=== PATIENT | female | born 1980 | race Caucasian/White ===

== ENCOUNTER → 2020-11-09 17:20 | Outpatient (CLI) | payer OTHER, SELFPAY | PROVIDERS: PCP Nurse Practitioner Primary Care; Referring Provider Nurse Practitioner Primary Care; Visit Provider Nurse Practitioner Primary Care | DX: Z20.828 Contact with and (suspected) exposure to other viral communicable diseases (principal) | CPT/HCPCS: 87635; 87804; C9803; U0003 ==

== ENCOUNTER 2020-12-16 13:22 | Outpatient (RCR) | payer OTHER, SELFPAY ==
[2014-05-13 17:26] VITALS: BMI 31.9
== END 2020-12-16 23:59 ==
LOC: IMMUN 13:22
PROVIDERS: PCP Family Medicine; Visit Provider Family Medicine
DX: Z23 Encounter for immunization (principal)
CPT/HCPCS: 0011A; 0012A

== ENCOUNTER 2021-03-31 07:44 | Day surgery (SDC) | payer OTHER, SELFPAY ==
--- NOTE | 2021-03-15 16:51 | HP.PCM_ITS ---
History and Physical Date of Admission: 03/31/21 HPI: The patient is a 40 year old female presenting for pre-operative visit. She is scheduled for hysteroscopy with endometrial ablation, laparoscopic bilateral salpingectomy, for menorrhagia and sterilization request on 03/31/2021. Procedure discussed along with risks, benefits and com plications. Other alternatives discussed for management. Consent form signed? Yes. ? ? PAST MEDICAL HISTORY PAST MEDICAL HISTORY Diagnosis Date ? Eczema ? ? scalp ? Hypercholesterolemia ? ? Irritable bowel syndrome ? ? Migraine ? ? Other immediate hemorrhage, unspecified as to episode of care ? ? hemorrhage ? Rosacea ? ? ? PAST SURGICAL HISTORY PAST SURGICAL HISTORY Procedure Laterality Date ? DELIVERY ONLY ? 2005,2006,2009 ? , low cervical ? HYSTEROSCOPY, SURG; REMOVE FB ? 06/29/11 ? mirena removal ? INSERT INTRAUTERINE DEVICE ? 01/19/2010 ? mirena, removal 06/29/11 ? REMOVAL OF TONSILS,<12 Y/O ? ? ? Tonsillectomy ? REPAIR ING HERNIA,5+Y/O,REDUCIBL ? age 3 ? Hernia repair, inguinal ? ? ? CURRENT MEDICATIONS Current Outpatient Medications Medication Sig Dispense Refill ? L-Norgest and E Estradiol-E Estrad (ASHLYNA) 0.15 mg-30 mcg (84)/10 mcg (7) Take 1 tablet by mouth once daily. 91 tablet 3 ? SUMAtriptan (IMITREX) 50 mg tablet Take 1 tablet by mouth as needed. 9 tablet 3 ? clobetasol-calcipotriene 0.05-0.005 % soln Apply 1 application to affected area every Sunday,Sunday,Sunday. ? ? ? ivermectin (SOOLANTRA) 1 % Apply 1 application to affected area daily at bedtime. ? ? ? multivitamin tablet Take 1 tablet by mouth once daily. ? ? ? No current facility-administered medications for this visit. ? ? ALLERGIES: Patient has no known allergies. ? PERSONAL HISTORY: SOCIAL HISTORY Social History ? Tobacco Use ? Smoking status: Never Smoker ? Smokeless tobacco: Never Used Vaping Use ? Vaping Use: Never used Substance Use Topics ? Alcohol use: Yes ? ? Comment: rare,NOT WHEN ? Drug use: No ? FAMILY HISTORY: FAMILY HISTORY FAMILY HISTORY Problem Relation Age of Onset ? Asthma Mother ? ? Heart Father ? ? heart arrhythmia ? Psychiatry Father ? ? bipolar ? Lipids Father ? ? Diabetes Father ? ? other (migraine) Brother ? ? Hypertension Maternal Grandfather ? ? Heart Paternal Grandmother ? ? AR ? Stroke Paternal Grandmother ? ? embolic 2/2 surgery ? Heart Paternal Grandfather ? ? AR ? other (adhd) Son ? ? Alcohol/Drug Maternal Uncle ? ? ALCOHOLISM ? Asthma Sister ? ? other (migraine) Sister ? ? ? REVIEW OF SYMPTOMS: GENERAL: denies fevers or chills ENDOCRINOLOGY: has not been on steroids Cardiology : denies palpitations or chest pain Respiratory: denies SOB or cough Hematology: denies history of prolonged bleeding or easy bruising or VTE Allergy: Denies history of personal or family history of allergy to anesthesia ? PHYSICAL EXAMINATION: ? VITALS: Blood pressure 120/82, pulse 93, height 5' 8 (1.727 m), weight 185 lb (83.9 kg), last menstrual period 07/22/2019. ? GENERAL: The patient is well nourished, well hydrated in no acute distress. , The patient is oriented to time, place, and person. NECK: Supple. No lynphadenopathy, normal thyroid, no thyromegaly. LUNGS: Clear to auscultation bilaterally. no wheezes, rhonchi or rales HEART: Regular rate and rhythm, Normal heart sounds and No murmurs or gallops ? ? IMPRESSION: Menorrhagia, sterilization request. ? PLAN: The risks/benefits/alternatives and personal involved for the planned hysteroscopy with endometrial ablation and laparoscopic bilateral salpingectomy were reviewed with the patient. Her questions were answered to her satisfaction and she desires to proceed. Consent was signed. I reviewed with her postop instructions and expectations. ? ? I have reviewed and updated past medical and surgical history, medications and allergies
[2021-03-31] VITALS (7 sets, daily range): BP systolic 106–126; BP diastolic 52–74; PULSE 62–81; RESP 16–18; TEMP 36.2–36.5; O2SAT 98–100; BMI 28.2
[2021-03-31] MEDS: Lactated Ringers 1,000 ML 70 ML IV (08:20)
[2021-03-31 08:31] LABS: Internal QC Validated? YES +Cl - CLEAR BKGD; Pregnancy, Urine Negative Negative
[2021-03-31] MEDS: Celecoxib 200 MG Capsule 400 MG PO (08:38)
[2021-03-31] MEDS: Acetaminophen 500 MG Tablet 1000 MG PO (08:39)
--- NOTE | 2021-03-31 09:30 | FALS_PTH ---
PATIENT: KEVIN GARCIA LOC: [facility] [place] U#:[id number] AGE/SX: 40/F ROOM: RE03/31/[address]: Dr. Kevin Rapp MD : 1980 BED: DIS: 03/31/2021 SPEC #: [id number] RECD: 03/31/21 11:50 STATUS: JULIAN REMavis #: [id number] MARGARITA: 03/31/21 09:[address]: Kevin Rapp DEPT: SURGICAL PATHOLOGY RECD BY: Jeane Kelley ENTERED: 03/31/21 12:50 SP TYPE: FALL TUBES OTHR DR: Dr. Alex Guerrero MD Tissues: Fallopian tube Procedures: Surgery Specimen Level II HEADER OPERATION: Bilateral laparoscopic salpingectomy, hysteroscopy PRE-OP DIAGNOSIS: Menorrhagia, sterilization request TISSUE SUBMITTED: Bilateral fallopian tubes MICROSCOPIC DIAGNOSIS Right and left fallopian tubes, bilateral salpingectomies: Complete cross-sections of fallopian tubes. Bilateral benign paratubal cysts. AM:juan m 04/01/2021 MICROSCOPIC DESCRIPTION Slides are reviewed. GROSS DESCRIPTION Received in fixative is one container labeled with the patient's name and designated bilateral fallopian tubes. The specimen consists of two fallopian tubes with an average length of 5.5 cm and has an average diameter of 0.7 cm. Both fallopian tubes have normal fimbriated ends. No mass lesions are identified. [employer] sections are submitted in two cassettes as follows: 1 - one fallopian tube, 2??the other fallopian tube. Note, a distinct fimbrial end is not identified on one fallopian tube. / AM:juan m 03/31/21 TC:5 CPT: 46705 x2
[2021-03-31] MEDS: Bupivacaine 0.5% PF 10 ML VIAL (10:18)
--- NOTE | 2021-03-31 11:01 | PCM.OPRPT ---
Problems Associated Problem List Diagnoses (1) Sterilization: (2) Menorrhagia: Report of Operation Date of Procedure: 03/31/21 Pre-Operative Diagnosis: menorrhagia, sterilization request Post-Operative Diagnosis: same Surgery/Procedure Performed:: Hysteroscopy- diagnostic and laparoscopic bilateral salpingectomy Description of Surgical Findings:: Normal-appearing uterus, tubes and ovaries. Normal-appearing cervix vagina and endometrial cavity. Surgeon: Jes Rapp credit control manager: Jyoti Linares Type of Anesthesia: General Anesthesiologist: Andrea Brandon Special Medications: none Specimen's removed: bilateral fallopian tubes Drains: none Estimated Blood Loss (mL): 20 Fluids Replaced: 800 Description of Procedure: The patient was taken to the operating room where she was prepped and draped in the dorsolithotomy position. A weighted speculum was placed in the vagina and the anterior lip of the cervix was grasped with a tenaculum. The Lady uterine manipulator was placed and the remainder of the instruments were removed from the vagina. Attention was turned to the abdomen. All port sites were infiltrated with 0.5% Marcaine before skin incisions were made. A 5 mm [intraumbilical] incision was made. The anterior abdominal wall was tented up with 2 towel clamps while a 5 mm blade less trocar and sleeve were [directly inserted]. Intraperitoneal placement was confirmed with the laparoscope. The pneumoperitoneum was created and the underlying abdominal contents were intact. The patient was placed in Trendelenburg. Right and left lower quadrant ports were placed under direct visualization lateral to the inferior epigastric vessels. The bowel was swept away and the above findings were noted. The Enseal device was used to clamp seal and transect the antimesenteric portions of the right tube to the cornual insertion of the uterus. The tube was amputated from the uterus and the pedicles were all confirmed to be hemostatic. The same procedure was performed on the contralateral side. The specimens were brought out through a 5 mm port. The pedicles were again examined and found to be hemostatic. The lateral ports were removed under direct visualization and no active bleeding was noted. The pneumoperitoneum was released. The skin incisions were closed with Monocryl suture in a subcuticular fashion and skin glue. Attention was turned to the vaginal portion of the case. The cervix was dilated serially with Hegar dilators. The [5mm] hysteroscope was placed into the uterine cavity and the above findings were noted. Bilateral tubal ostia [were] identified. The uterus sounded to 8cm and the cervical length was 3.5cm. The endometrial cavity length was 4.5cm. The hysteroscope was removed. The Deirdre device was set to 4.5cm. When I attempted to seat the device into the endometrial cavity and tacked the fundus of the uterus, no resistance was met and it was suspected that a perforation was occurring and the device was not opened. I removed the device and placed a sound and confirmed that the cavity was no longer able to be sounded and the sound passed through the defect. The procedure was terminated. The tenaculum was removed and the tenaculum site was noted to be hemostatic. All sponge and needle counts were correct. A vaginal sweep was performed by me. The patient was awakened and taken to the recovery room in stable condition. Hysteroscopic ins: 200cc normal saline Hysteroscopic outs:150cc Findings: Endometrial cavity: [normal, no fibroids or polyps noted] Cervix: [normal] Vagina: [normal] Normal-appearing uterus tubes and ovaries and peritoneal cavity. Grafts/Implants Used: none Procedure Start Time: 10:18 Procedure Stop Time: 10:50 Complications none Admit VTE Documentation VTE Present on Admission: No VTE Mechan Device Prophylaxis: SCD's VTE Pharm Prophylaxis ordered?: No Reason prophylaxis not ordered:: Procedure Not Indicated
[2021-03-31] MEDS: Lactated Ringers 1,000 ML 100 ML IV (11:05)
--- NOTE | 2021-03-31 11:07 | PCM.DC ---
Discharge Instructions Diet Discharge Diet: No restrictions Activity Discharge Activity: May Shower and May Take a Tub Bath (in 2 weeks) May resume sexual activity in: 1 week Lifting Restrictions: none Dressing / Incision Call your doctor if your incision/area has: Sudden Increased Bleeding and Foul Smelling Discharge Call your doctor if you observe: Fever of 101 or Higher Cleanse incision/area with: Soap & Water (Your incisions have skin glue and it can get wet. Leave on until it falls off) Additional Dressing/Incision Instructions:: Your incision have skin glue, it can get wet. Leave it on until it falls off Follow Up Care Please Follow Up With: Jes Rapp MD When: In my office or virtual visit in 1-2 weeks or as needed Test Results: Test results from this visit will be discussed in further detail at your follow-up appointment, if applicable. Discharge Plan Admission Primary Reason for Your Visit: tubal ligation Attending Provider: Jes Rapp Primary Care Provider: Alex Guerrero Discharge Orders/Prescriptions Prescriptions: Continued sumatriptan succinate 50 mg Tablet 50 mg PO Q2H PRN (Reason: MIGRAINES) RF: 0 magnesium 200 mg Tablet 400 mg PO DAILY RF: 0 L norgest/e.estradiol-e.estrad [Camrese] 0.15 mg-30 mcg (84)/10 mcg (7) Tablets,Dose Pack,3 Month 1 tab PO DAILY RF: 0 ivermectin [Soolantra] 1 % Cream 1 applic TOPICAL QHS RF: 0 Rhofade 1 % Cream 1 applic TOPICAL DAILY RF: 0 Referrals / Follow Up: Alex Guerrero MD [Primary Care Provider] - Disposition Disposition (needs filled in before D/C Order can be placed): Home, self care
== END 2021-03-31 12:35 | disposition home or self-care (01) ==
LOC: SDC 07:45 → AC 07:46
PROVIDERS: PCP Family Medicine; Referring Provider Obstetrics & Gynecology; Visit Provider Obstetrics & Gynecology
PROC: (CPT 58661; principal; 2021-03-31 09:15)
DX: N83.8 Other noninflammatory disorders of ovary, fallopian tube and broad ligament (principal); N92.0 Excessive and frequent menstruation with regular cycle; Z30.2 Encounter for sterilization; E78.00 Pure hypercholesterolemia, unspecified
CPT/HCPCS: 00840; 58555; 58661; 81025; 88302; J7120; J2405